=== PATIENT | male | born 1975 | race Caucasian/White ===

== ENCOUNTER 2022-03-14 08:58 | Emergency (ER) | payer OTHER, SELFPAY ==
[2022-03-14 09:20] VITALS: BP 142/81; PULSE 62; RESP 16; TEMP 36.3; O2SAT 98
--- NOTE | 2022-03-14 09:50 | ED.URI ---
HPI - URI/Sore Throat General Chief Complaint: Upper Respiratory Infection Stated Complaint: Cough,Headache Source: patient Mode of arrival: ambulatory Limitations: no limitations History of Present Illness HPI Narrative: 46-year-old male presents [facility] with complaints of sore throat for the past week. Patient reports that yesterday his symptoms became worse with cough, body aches, chills, fatigue, headache and fevers up to 101. Patient reports that he had a positive home COVID test. Patient denies sick contacts. Patient denies recent travel. Patient denies wheezing, nausea, vomiting or diarrhea. Patient reports that he does feel short of breath at times during coughing fits. MD elicited complaint: fever, cough, sore throat, rhinorrhea and nasal congestion Onset (ago): day(s) (1) Able to tolerate fluids by mouth: Yes Treatments prior to arrival: acetaminophen and ibuprofen Related Data Allergies Allergy/AdvReac Type Severity Reaction Status Date / Time No Known Allergies Allergy Verified 03/14/22 09:43 Review of Systems Constitutional: Constitutional: Reports chills, Reports fatigue, Reports fever(s) and Denies weakness ENT: Denies dizziness, Denies epistaxis, Reports nasal congestion and Reports sore throat Cardiovascular: Cardiovascular: Denies chest pain Respiratory: Respiratory: Reports chest congestion, Reports cough, Reports dyspnea and Denies wheezing Gastrointestinal: Gastrointestinal: Denies abdominal pain, Denies diarrhea, Denies nausea and Denies vomiting Integumentary/Breasts: Skin/Breast: Denies rash Allergic/Immunologic: Allergic/Immunologic: Denies lip swelling, Denies throat swelling and Denies tongue swelling PMFSH Past Medical History Medical History (Updated 03/14/22 @ 09:56 by Marina Reilly APRN) Hernia Social History Social History (Updated 03/14/22 @ 09:53 by Marina Reilly APRN) Smoking status: Former smoker Comments At time of signature, I agree with nursing past medical, surgical, social and family history. There is no relevant family history pertinent to the presenting complaint. Exam Const: General: healthy appearing and no acute distress Nutritional Appearance: well nourished Orientation/consciousness: patient oriented x3 Limitations: no limitations HENMT: Head: normal to inspection Ears: external ears normal and TM's normal bilaterally Face and sinus: normal facial exam Mouth: Yes Normal oral and palatal mucosa present and Yes lip normal Throat: posterior oropharynx normal and uvula midline Neck: Neck: normal visual inspection Resp: Effort & Inspection: normal respiratory effort and not labored Auscultation: clear to auscultation bilaterally, no crackles, no rales, no rhonchi and no wheezes Cardio: Rate: regular rate Rhythm: regular rhythm Heart sounds: no murmurs Skin: General skin exam: normal color Rashes: no rashes Wounds: no wounds Neuro: General: patient oriented x3 Speech: normal speech Gait exam (Neuro): Normal gait present Psych: Affect: normal affect Attitude: cooperative Course Course Level of Care: [facility] Visit Vital Signs Vital signs: Vital Signs Temperature 36.3 C L 03/14/22 09:20 Pulse Rate 62 03/14/22 09:20 Respiratory Rate 16 03/14/22 09:20 Blood Pressure 142/81 H 03/14/22 09:20 Pulse Oximetry 98 03/14/22 09:20 Oxygen Delivery Room Air 03/14/22 09:20 Temperature 36.3 C L 03/14/22 09:20 Pulse Rate 62 03/14/22 09:20 Respiratory Rate 16 03/14/22 09:20 Blood Pressure 142/81 H 03/14/22 09:20 Pulse Oximetry 98 03/14/22 09:20 Oxygen Delivery Room Air 03/14/22 09:20 MDM - URI/Sore Throat MDM Narrative Medical decision making narrative: Discussed positive COVID results with patient. He understands he is to self quarantine for 5 days per CDC guidelines. Patient agrees to monitor symptoms very closely and agrees to proceed to emergency room if symptoms worsen. Patient agre
== END 2022-03-14 10:11 | disposition home or self-care (01) ==
PROVIDERS: Emergency Provider Nurse Practitioner Family; PCP Internal Medicine
DX: U07.1 COVID-19 (principal); Z87.891 Personal history of nicotine dependence
CPT/HCPCS: 87426; 99213; C9803; G0463